=== PATIENT | female | born 1980 | race Caucasian/White ===

== ENCOUNTER → 2017-03-04 | Outpatient (CLI) | payer BC ==
--- NOTE | 2017-03-04 09:21 | MM ---
Reason for exam: screening (asymptomatic). Baseline mammogram. History: Family history of breast cancer in paternal grandmother and breast cancer in paternal aunt. Physical Findings: Nurse did not find any significant physical abnormalities on exam. MG Screening Mammo w CAD Bilateral CC and MLO view(s) were taken. The breast tissue is heterogeneously dense. This may lower the sensitivity of mammography. Finding: There is a typically benign 3.9 mm equal density (isodense), round mass in the right breast consistent with benign disease. These results were verbally communicated with the patient and result sheet given to the patient on 03/04/17. ASSESSMENT: Benign, BI-RAD 2 RECOMMENDATION: Follow-up diagnostic mammogram of both breasts in 1 year.
[2017-03-04 11:30] LABS: Hemoglobin A1C 5.5 % (4.2-6.1)
[2017-03-04 13:43] LABS: Follicle Stimulating Hormone 4.3 mIU/mL
== END | disposition home or self-care (01) ==
LOC: RADMAMWWP 07:52
PROVIDERS: ATTEND Obstetrics & Gynecology
DX: Z12.31 Encounter for screening mammogram for malignant neoplasm of breast (principal); Z13.1 Encounter for screening for diabetes mellitus; Z13.220 Encounter for screening for lipoid disorders; Z13.29 Encounter for screening for other suspected endocrine disorder; N92.6 Irregular menstruation, unspecified; Z80.3 Family history of malignant neoplasm of breast
CPT/HCPCS: 84439; 80061; 83001; 83002; 83036; 82670; 82947; 84443; G0202; 96361; 96365; 99285

== ENCOUNTER → 2017-08-22 | Outpatient (CLI) | payer BC ==
--- NOTE | 2017-08-23 07:47 | MM ---
Reason for exam: clinical finding. Last mammogram was performed 6 months ago. History: Family history of breast cancer in paternal grandmother and breast cancer in paternal aunt. Physical Findings: Nurse did not find any significant physical abnormalities on exam. MG Diagnostic Mammo w CAD MATHEUS Bilateral CC and MLO view(s) were taken. Prior study comparison: March 04, 2017, bilateral MG screening mammo w CAD. The breast tissue is heterogeneously dense. This may lower the sensitivity of mammography. No suspicious abnormality. No significant new findings when compared with previous films. These results were verbally communicated with the patient and result sheet given to the patient on 08/22/17. ASSESSMENT: Negative, BI-RAD 1 RECOMMENDATION: Routine screening mammogram of both breasts in 1 year. Manage patient on a clinical basis. If persistent discharge, MR brain could be performed, pituitary mass protocol for microadenoma.
--- NOTE | 2017-08-23 07:49 | USB ---
Reason for exam: additional evaluation requested from abnormal screening. History: Family history of breast cancer in paternal grandmother and breast cancer in paternal aunt. US Breast BILAT Right breast ultrasound includes all four quadrants, the retroareolar region and axilla. Finding demonstrates a 3mm cystic lesion at 8 o'clock. Left breast ultrasound includes all four quadrants, the retroareolar region and axilla. Finding demonstrates a 3mm cystic lesion at 6 o'clock. Benign with post acoustic enhancement. These results were verbally communicated with the patient and result sheet given to the patient on 08/22/17. ASSESSMENT: Benign, BI-RAD 2 RECOMMENDATION: Routine screening mammogram of both breasts in 1 year. Manage patient on a clinical basis.
== END | disposition home or self-care (01) ==
LOC: RADMAMWWP 14:11
PROVIDERS: ATTEND Family Medicine
DX: N64.52 Nipple discharge (principal)
CPT/HCPCS: 76641; G0204

== ENCOUNTER → 2018-01-15 | Outpatient (CLI) | payer BC ==
[2018-01-15 10:48] LABS: T4, Free (Free Thyroxine) 0.81 ng/dL (0.78-2.19)
[2018-01-15 17:19] LABS: Insulin Level 5.5 mIU/mL (3.0-25.0)
[2018-01-15 18:57] LABS: ACTH 27.5 pg/mL (0.00-45.99)
== END | disposition home or self-care (01) ==
LOC: LABWHC1 08:48
PROVIDERS: ATTEND Internal Medicine Endocrinology, Diabetes & Metabolism
DX: N97.0 Female infertility associated with anovulation (principal)
CPT/HCPCS: 36415; 82024; 82533; 82670; 82947; 83001; 83002; 83525; 84146; 84403; 84439; 84443

== ENCOUNTER → 2018-03-05 | Outpatient (CLI) | payer BC | END | disposition home or self-care (01) | LOC: LABWHC1 08:30 | PROVIDERS: ATTEND Internal Medicine Endocrinology, Diabetes & Metabolism | DX: N97.0 Female infertility associated with anovulation (principal) | CPT/HCPCS: 36415; 84144 ==

== ENCOUNTER → 2018-03-18 | Outpatient (CLI) | payer BC ==
[2018-03-19 06:27] LABS: Hemoglobin A1C 5.3 % (4.0-6.0)
== END | disposition home or self-care (01) ==
LOC: LABWHC1 16:05
PROVIDERS: ATTEND Internal Medicine Endocrinology, Diabetes & Metabolism
DX: E03.8 Other specified hypothyroidism (principal); R73.09 Other abnormal glucose
CPT/HCPCS: 36415; 83036; 86376

== ENCOUNTER 2018-09-23 15:42 | Emergency (ER) | payer BC ==
[2018-09-23 15:51] VITALS: RESP 18
[2018-09-23] MEDS ORDERED: MORPHINE SULFATE 4 MG/ML SYRINGE IV STA (16:54)
[2018-09-23] MEDS ORDERED: SODIUM CHLORIDE 0.9% 1,000 ML IV STA (16:54)
[2018-09-23] MEDS ORDERED: ONDANSETRON 4 MG/2 ML VIAL IVP STA ×2 (16:54→20:25)
[2018-09-23 17:13] LABS: Basophils # (A) 0.1 k/uL (0-0.2); Basophils % (A) 1 %; Eosinophils # (A) 0.3 k/uL (0-0.7); Eosinophils % (A) 3 %; HCT 43.7 % (34.0-46.0); HGB 14.1 gm/dL (11.4-16.0); Lymphocytes # (A) 2.3 k/uL (1.0-4.8); Lymphocytes % (A) 23 %; MCH 30.4 pg (25.0-35.0); MCHC 32.3 g/dL (31.0-37.0); Mean Platelet Volume 7.8; Monocytes # (A) 0.6 k/uL (0-1.0); Monocytes % (A) 6 %; Neutrophils # (A) 6.7 k/uL (1.3-7.7); Neutrophils % (A) 66 %; Platelet Count 335 k/uL (150-450); RBC 4.65 m/uL (3.80-5.40); RDW 13.5 % (11.5-15.5); WBC 10.2 k/uL (3.8-10.6)
[2018-09-23 17:16] LABS: Appearance,Urine Clear (Clear); Bilirubin,Urine Negative (Negative); Blood,Urine Negative (Negative); Color,Urine Yellow; Glucose,Urine (UA) Negative (Negative); Ketones,Urine Negative (Negative); Leukocyte Esterase,Urine Negative (Negative); Nitrite,Urine Negative (Negative); PH, Urine 5.5 (5.0-8.0); Protein,Urine Negative (Negative); Specific Gravity,Urine 1.007 (1.001-1.035); Urobilinogen,Urine <2.0 mg/dL (<2.0)
[2018-09-23 17:24] LABS: ALT 43 U/L (9-52); AST 30 U/L (14-36); Albumin 3.9 g/dL (3.5-5.0); Alkaline Phosphatase 101 U/L (38-126); Amylase 42 U/L (30-110); Anion Gap 8 mmol/L; Blood Urea Nitrogen 4 mg/dL (7-17); Calcium 9.4 mg/dL (8.4-10.2); Carbon Dioxide 21 mmol/L (22-30); Chloride 110 mmol/L (98-107); Glucose 94 mg/dL (74-99); Lipase 77 U/L (23-300); Potassium 4.5 mmol/L (3.5-5.1); Sodium 139 mmol/L (137-145); Total Bilirubin 0.7 mg/dL (0.2-1.3); Total Protein 6.7 g/dL (6.3-8.2)
--- NOTE | 2018-09-23 17:41 | ED ---
General Adult HPI - General Chief complaint: Abdominal Pain Stated complaint: Pelvic pain Time Seen by Provider: 09/23/18 16:46 Source: patient, RN notes reviewed Mode of arrival: ambulatory Limitations: no limitations - History of Present Illness Initial comments: Patient 38-year-old female presented to the emergency room today with a chief complaint of left lower quadrant pain that began yesterday. Patient states that she woke up yesterday with discomfort in the left lower quadrant. Patient denies any radiation. She does admit to feeling nauseated. She states never had pain similar to this in the past. She does admit that she started her menstrual cycle today. Denies any other complaints or symptoms. Patient denies any recent fever, chills, shortness of breath, chest pain, back pain, numbness or tingling, headaches or visual changes, or any other complaints. - Related Data Home Medications Medication Instructions Recorded Confirmed Ibuprofen [Motrin Ib] 800 mg PO Q6H PRN 09/23/18 09/23/18 Previous Rx's Medication Instructions Recorded Hydrocodone/Acetaminophen [[place] 1 each PO Q6HR PRN #12 tab 09/23/18 5-325] Ibuprofen [Motrin] 800 mg PO Q6HR #30 tab 09/23/18 Ondansetron Odt [Zofran ODT] 4 mg PO Q8HR PRN #20 tab 09/23/18 Allergies Allergy/AdvReac Type Severity Reaction Status Date / Time No Known Allergies Allergy Verified 09/23/18 16:33 Review of Systems ROS Statement: Those systems with pertinent positive or pertinent negative responses have been documented in the HPI. ROS Other: All systems not noted in ROS Statement are negative. Past Medical History Past Medical History: No Reported History History of Any Multi-Drug Resistant Organisms: None Reported Past Surgical History: No Surgical Hx Reported Additional Past Surgical History / Comment(s): d&c Past Psychological History: No Psychological Hx Reported Smoking Status: Current every day smoker Past Alcohol Use History: Occasional Past Drug Use History: None Reported General Exam - General Exam Comments Initial Comments: General: The patient is awake and alert, in mild distress. Eye: Pupils are equal, round and reactive to light. Extra-ocular movements are intact. No nystagmus. There is normal conjunctiva bilaterally. No signs of icterus. Ears, nose, mouth and throat: There are moist mucous membranes and no oral lesions. Neck: The neck is supple, there is no tenderness or JVD. Cardiovascular: There is a regular rate and rhythm. No murmur, rub or gallop is appreciated. Respiratory: Lungs are clear to auscultation, respirations are non-labored, breath sounds are equal. No wheezes, stridor, rales, or rhonchi. Gastrointestinal: Abdomen soft on palpation. Patient does have tenderness left lower quadrant. No rebound, guarding or CVA tenderness. Musculoskeletal: Normal ROM, no tenderness. Sensation intact. Strength 5/5. Pulses equal bilaterally 2+. Neurological: A&O x 3. CN II-XII intact, There are no obvious motor or sensory deficits. Coordination appears grossly intact. Speech is normal. Skin: Skin is warm and dry and no rashes or lesions are noted. Psychiatric: Cooperative, appropriate mood & affect, normal judgment. Limitations: no limitations Course Vital Signs 09/23/18 09/23/18 15:49 19:06 Temperature 98.0 F Pulse Rate 74 70 Respiratory 18 18 Rate Blood Pressure 120/79 101/72 O2 Sat by Pulse 100 98 Oximetry Medical Decision Making - Medical Decision Making Patient's labs been reviewed. Patient's ultrasound does show evidence of a large left ovarian cyst no evidence for torsion. Good venous Doppler flow. Results were discussed with the patient is discussed with attending physician Dr. toledo. 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 She will be given pain medication. An opiate Start talking foreign was completed. Patient is advised that she should return to emergency room if any symptoms increase or worsen. She states understanding and is in agreement. - Lab Data Result diagrams: 09/23/18 16:32 09/23/18 16:32 Lab Results 09/23/18 09/23/18 09/23/18 Range/Units 16:32 16:32 16:55 WBC 10.2 (3.8-10.6) k/uL RBC 4.65 (3.80-5.40) m/uL Hgb 14.1 (11.4-16.0) gm/dL Hct 43.7 (34.0-46.0) % MCV 94.0 (80.0-100.0) fL MCH 30.4 (25.0-35.0) pg MCHC 32.3 (31.0-37.0) g/dL RDW 13.5 (11.5-15.5) % Plt Count 335 (150-450) k/uL Neutrophils % 66 % Lymphocytes % 23 % Monocytes % 6 % Eosinophils % 3 % Basophils % 1 % Neutrophils # 6.7 (1.3-7.7) k/uL Lymphocytes # 2.3 (1.0-4.8) k/uL Monocytes # 0.6 (0-1.0) k/uL Eosinophils # 0.3 (0-0.7) k/uL Basophils # 0.1 (0-0.2) k/uL Sodium 139 (137-145) mmol/L Potassium 4.5 (3.5-5.1) mmol/L Chloride 110 H (98-107) mmol/L Carbon Dioxide 21 L (22-30) mmol/L Anion Gap 8 mmol/L BUN 4 L (7-17) mg/dL Creatinine 0.69 (0.52-1.04) mg/dL Est GFR (CKD-EPI)AfAm >90 (>60 ml/min/1.73 sqM) Est GFR (CKD-EPI)NonAf >90 (>60 ml/min/1.73 sqM) Glucose 94 (74-99) mg/dL Calcium 9.4 (8.4-10.2) mg/dL Total Bilirubin 0.7 (0.2-1.3) mg/dL AST 30 (14-36) U/L ALT 43 (9-52) U/L Alkaline Phosphatase 101 (38-126) U/L Total Protein 6.7 (6.3-8.2) g/dL Albumin 3.9 (3.5-5.0) g/dL Amylase 42 (30-110) U/L Lipase 77 (23-300) U/L Urine Color Urine Appearance (Clear) Urine pH (5.0-8.0) Ur Specific [place] (1.001-1.035) Urine Protein (Negative) Urine Glucose (UA) (Negative) Urine Ketones (Negative) Urine Blood (Negative) Urine Nitrite (Negative) Urine Bilirubin (Negative) Urine Urobilinogen (<2.0) mg/dL Ur Leukocyte Esterase (Negative) Urine HCG, Qual Not Detected (Not Detectd) 09/23/18 Range/Units 16:55 WBC (3.8-10.6) k/uL RBC (3.80-5.40) m/uL Hgb (11.4-16.0) gm/dL Hct (34.0-46.0) % MCV (80.0-100.0) fL MCH (25.0-35.0) pg MCHC (31.0-37.0) g/dL RDW (11.5-15.5) % Plt Count (150-450) k/uL Neutrophils % % Lymphocytes % % Monocytes % % Eosinophils % % Basophils % % Neutrophils # (1.3-7.7) k/uL Lymphocytes # (1.0-4.8) k/uL Monocytes # (0-1.0) k/uL Eosinophils # (0-0.7) k/uL Basophils # (0-0.2) k/uL Sodium (137-145) mmol/L Potassium (3.5-5.1) mmol/L Chloride (98-107) mmol/L Carbon Dioxide (22-30) mmol/L Anion Gap mmol/L BUN (7-17) mg/dL Creatinine (0.52-1.04) mg/dL Est GFR (CKD-EPI)AfAm (>60 ml/min/1.73 sqM) Est GFR (CKD-EPI)NonAf (>60 ml/min/1.73 sqM) Glucose (74-99) mg/dL Calcium (8.4-10.2) mg/dL Total Bilirubin (0.2-1.3) mg/dL AST (14-36) U/L ALT (9-52) U/L Alkaline Phosphatase (38-126) U/L Total Protein (6.3-8.2) g/dL Albumin (3.5-5.0) g/dL Amylase (30-110) U/L Lipase (23-300) U/L Urine Color Yellow Urine Appearance Clear (Clear) Urine pH 5.5 (5.0-8.0) Ur Specific [place] 1.007 (1.001-1.035) Urine Protein Negative (Negative) Urine Glucose (UA) Negative (Negative) Urine Ketones Negative (Negative) Urine Blood Negative (Negative) Urine Nitrite Negative (Negative) Urine Bilirubin Negative (Negative) Urine Urobilinogen <2.0 (<2.0) mg/dL Ur Leukocyte Esterase Negative (Negative) Urine HCG, Qual (Not Detectd) Disposition Clinical Impression: Ovarian cyst Disposition: HOME SELF-CARE Condition: Good Instructions: Ovarian Cyst (ED) Additional Instructions: Please use medication as discussed. Please follow-up with family doctor in the next 2 days of symptoms have not improved. Please return to emergency room if the symptoms increase or worsen or for any other concerns. Prescriptions: Hydrocodone/Acetaminophen [[place] 5-325] 1 each PO Q6HR PRN #12 tab PRN Reason: Pain Ibuprofen [Motrin] 800 mg PO Q6HR #30 tab Ondansetron Odt [Zofran ODT] 4 mg PO Q8HR PRN #20 tab PRN Reason: Nausea Is patient prescribed a controlled substance at d/c from ED?: No Referrals: None,Stated [Primary Care Provider] - 1-2 days Jhoana Lang DO [Doctor of Osteopathic Medicine] - 1-2 days Time of Disposition: 20:27
[2018-09-23] MEDS ORDERED: HYDROmorphone 1 MG/ML 1 ML SYRINGE IVP STA ×2 (17:43→20:25)
--- NOTE | 2018-09-23 19:24 | US ---
EXAMINATION TYPE: US transvaginal DATE OF EXAM: 09/23/2018 COMPARISON: NONE CLINICAL HISTORY: pain. Severe LLQ pain x 2 days; G0; D&C TECHNIQUE: Transvaginal (TV). per EC ordering physician. Transvaginal sonographic images were medic ally necessary to better assess the following anatomy: left ovary. Date of LMP: 09/23/2018 EXAM MEASUREMENTS: Uterus: 7.6 x 4.6 x 3.9 cm Endometrial Stripe: 0.5 cm Right Ovary: 4.6 x 3.9 x 2.9 cm Left Ovary: 5.1 x 5.1 x 4.8 cm 1. Uterus: Anteverted; couple of small Nabothian Cysts in cervix 2. Endometrium: thickness is wnl for Day 1 LMP 3. Right Ovary: enlarged ovary; couple of follicular cysts seen with larger simple cyst = 3.0 x 2.7 x 2.4cm 4. Left Ovary: enlarged ovary; enlarged anechoic simple cyst present, demonstrating posterior wall e nhancement and acoustic through sound transmission. This correlates with the patient's area of pain; cyst size = 4.3 x 5.1 x 4.9cm. Spectral, color and waveform Doppler imaging shows good arterial and venous flow within the right o vary. Flow is also seen on the left, in periphery of left ovary on on images #[id number], [id number] with venous flow,[id number], [id number], and arterial flow in periphery on image #[id number]. 5. Bilateral Adnexa: wnl 6. Posterior cul-de-sac: wnl IMPRESSION: LARGE LEFT OVARIAN CYST; LEFT OVARIAN ARTERIAL/VENOUS DOPPLER PERFUSION DOCUMENTED.
[2018-09-23] MEDS ORDERED: KETOROLAC 30 MG/ML 1 ML VIAL IVP STA (20:25)
[2018-09-23 20:46] VITALS: BP 123/78; PULSE 65; TEMP 98.6
== END 2018-09-23 20:52 | disposition home or self-care (01) ==
LOC: EC 15:42
DX: N83.202 Unspecified ovarian cyst, left side (principal); F17.200 Nicotine dependence, unspecified, uncomplicated
CPT/HCPCS: 36415; 80053; 82150; 83690; 85025; 81003; 81025; 93975; 76830; 99284; 96374; 96375 ×3; 96376 ×2; 96361 ×4; J2270; J2405; J1885; J1170

== ENCOUNTER → 2018-11-10 | Outpatient (CLI) | payer BC ==
[2018-11-10 12:53] LABS: Basophils # (A) 0.1 k/uL (0-0.2); Basophils % (A) 1 %; Eosinophils # (A) 0.3 k/uL (0-0.7); Eosinophils % (A) 4 %; HGB 13.9 gm/dL (11.4-16.0); Lymphocytes % (A) 26 %; MCHC 32.3 g/dL (31.0-37.0); MCV 92.8 fL (80.0-100.0); Mean Platelet Volume 7.1; Monocytes # (A) 0.5 k/uL (0-1.0); Monocytes % (A) 7 %; Neutrophils # (A) 4.7 k/uL (1.3-7.7); Neutrophils % (A) 60 %; Platelet Count 356 k/uL (150-450); RBC 4.64 m/uL (3.80-5.40); RDW 14.2 % (11.5-15.5); WBC 7.8 k/uL (3.8-10.6)
== END | disposition home or self-care (01) ==
LOC: LABPAT 12:00
PROVIDERS: ATTEND Obstetrics & Gynecology
DX: Z01.812 Encounter for preprocedural laboratory examination (principal)
CPT/HCPCS: 85025

== ENCOUNTER → 2018-12-09 | Day surgery (SDC) | payer BC ==
[2018-11-28 14:35] VITALS: BMI 28.8
--- NOTE | 2018-12-08 20:56 | P.HPOB ---
History of Present Illness H&P Date: 12/08/18 Chief Complaint: Dysmenorrhea, history of ovarian cysts, infertility This is a 38-year-old female 0 who presents for laparoscopy, possible ablation of endometriosis, possible lysis of adhesions, possible drainage of ovarian cyst, and chromotubation of bilateral fallopian tubes She did have a large left ovarian cyst approximate 5 cm a few months ago and her recent ultrasound showed that cyst has gone down but she now has a small cyst on her right ovary measuring 2.8 cm. She complains of severe dysmenorrhea the first couple days of her menses. She has been trying to get for the last 6 years and has not used any protection during that time. Her does have an 8-year-old child from a previous relationship. During the laparoscopy she would like testing to determine if her tubes are patent. Her latest pelvic ultrasound showed a uterus measuring 6.3 x 4.2 x 3.1 cm. Endometrial stripe thickness was 8 mm. Her right ovary measured 3.2 cm and contained a small simple cyst measuring 2.8 cm. Her left ovary appeared normal measuring 2.8 cm. Obstetrical history: G0. Gynecologic history: No history of sexual transmitted diseases. Menses are occurring every 30-32 days and last 5-7 days with cramping the first couple days. Social history: She is and works at [employer] Review of Systems Constitutional: Reports fatigue, Denies chills, Denies fever Eyes: denies blurred vision, denies pain Ears, nose, mouth and throat: Reports headache, Denies sore throat Cardiovascular: Reports chest pain, Denies shortness of breath Respiratory: Denies cough Gastrointestinal: Denies abdominal pain, Denies diarrhea, Denies nausea, Denies vomiting Genitourinary: Reports dysmenorrhea Menstruation: Reports menses 1-7 days Musculoskeletal: Reports low back pain, Reports myalgias Musculoskeletal: bilateral: knee pain Integumentary: Denies pruritus, Denies rash Neurological: Denies numbness, Denies weakness Psychiatric: Denies anxiety, Denies depression Endocrine: Reports flushing Past Medical History Past Medical History: Chest Pain / Angina, GERD/Reflux Additional Past Medical History / Comment(s): currently having abdominal pain with menses with sporadic intervals of pain, bronchitis; Raynaud's History of Any Multi-Drug Resistant Organisms: None Reported Additional Past Surgical History / Comment(s): d&c x 3 Past Anesthesia/Blood Transfusion Reactions: No Reported Reaction Additional Past Anesthesia/Blood Transfusion Reaction / Comment(s): no hx blood transfusion Past Psychological History: No Psychological Hx Reported Smoking Status: Current every day smoker (One pack per day) Past Alcohol Use History: Occasional Past Drug Use History: None Reported - Past Family History Mother Family Medical History: No Reported History Father Family Medical History: Myocardial Infarction ([place]) Medications and Allergies Home Medications Medication Instructions Recorded Confirmed Type Ibuprofen [Motrin] 400 - 800 mg PO Q6HR PRN 11/28/18 11/28/18 History Pnv No.95/Ferrous Fum/Folic AC 1 each PO DAILY 11/28/18 11/28/18 History [ Multivitamin Tablet] Allergies Allergy/AdvReac Type Severity Reaction Status Date / Time No Known Allergies Allergy Verified 11/28/18 14:27 Exam Osteopathic Statement: *. No significant issues noted on an osteopathic structural exam other than those noted in the History and Physical/Consult. HEENT: Within normal limits Heart: Regular rate and rhythm Lungs: Clear to auscultation bilaterally Abdomen: Soft, nontender Pelvic exam: Uterus is anteverted, nontender, with slightly enlarged left adnexa and tenderness noted. Extremities: Negative Homans Assessment and Plan (1) Dysmenorrhea Status: Acute Code(s): N94.6 - DYSMENORRHEA, UNSPECIFIED SNOMED Code(s): 937703897 (2) Ovarian cyst Status: Acute Code(s): N83.209 - UNSPECIFIED OVARIAN CYST, UNSPECIFIED SIDE SNOMED Code(s): 89168491 (3) Infertility Status: Acute Code(s): BVW2399 - SNOMED Code(s): 4372382 Plan: Proceed with laparoscopy with possible ablation of endometriosis, possible lysis of adhesions, possible drainage of ovarian cysts, and chromotubation of bilateral fallopian tubes. I have discussed the risks, benefits, and alternative therapies for the above- mentioned procedure and for both sedation/anesthesia as well as necessary blood products administration, if indicated, as they pertain to this patient. The patient has indicated her understanding and acceptance of the risks and procedures discussed.
[~2018-12-09] MED LIST: BUPIVACAINE (PF) 0.25% 30 ML VIAL SQ ONE; DEXAMETHASONE SOD PHOSPHATE 10 MG/ML 1 ML VIAL IV ONE; GLYCOPYRROLATE 0.2 MG/ML 2 ML VIAL ONE; HYDROcodone/APAP 5-325MG 1 EACH TAB PO ONE; HYDROmorphone (PF) 1 MG/ML ONE; KETOROLAC 30 MG/ML 1 ML VIAL ONE; LACTATED RINGERS 1,000 ML IV ONE; LACTATED RINGERS 1,000 ML IV SCH; LIDOCAINE 1% INJ 10MG/ML (20 ML MDV) ONE; MIDAZOLAM 2 MG/2 ML VIAL ONE; MORPHINE SULFATE 4 MG/ML SYRINGE IV PRN; NEOSTIGMINE 1 MG/ML 10 ML VIAL ONE; ONDANSETRON 4 MG/2 ML VIAL IVP ONE; ONDANSETRON 4 MG/2 ML VIAL IVP PRN; PROPOFOL 10 MG/ML 20 ML VIAL IV ONE; ROCURONIUM BROMIDE 10 MG/ML 10 ML VIAL IV ONE; ceFAZolin IN SWFI 2 GM/20 ML SYRINGE IVP ONE; fentaNYL (PF) 50 MCG/ML 2 ML AMP ONE
[2018-12-09 09:29] VITALS: RESP 16
--- NOTE | 2018-12-09 11:41 | P.OP ---
Date of Procedure: 12/09/18 Preoperative Diagnosis: Dysmenorrhea History of ovarian cysts Infertility Postoperative Diagnosis: Same plus Normal pelvis Patent bilateral fallopian tubes Procedure(s) Performed: Laparoscopy Chromotubation Anesthesia: TRINITY Surgeon: Jhoana Lang Estimated Blood Loss (ml): 5 Pathology: none sent Condition: stable Disposition: same day Indications for Procedure: This is a 38-year-old female 0 who presents for laparoscopy, possible ablation of endometriosis, possible lysis of adhesions, possible drainage of ovarian cyst, and chromotubation of bilateral fallopian tubes She did have a large left ovarian cyst approximate 5 cm a few months ago and her recent ultrasound showed that cyst has gone down but she now has a small cyst on her right ovary measuring 2.8 cm. She complains of severe dysmenorrhea the first couple days of her menses. She has been trying to get for the last 6 years and has not used any protection during that time. Her does have an 8-year-old child from a previous relationship. During the laparoscopy she would like testing to determine if her tubes are patent. Her latest pelvic ultrasound showed a uterus measuring 6.3 x 4.2 x 3.1 cm. Endometrial stripe thickness was 8 mm. Her right ovary measured 3.2 cm and contained a small simple cyst measuring 2.8 cm. Her left ovary appeared normal measuring 2.8 cm. Operative Findings: Uterus is mid to retroverted with no adnexal masses palpated. Upon laparoscopy , both tubes and ovaries are visualized. There is a small functional cyst on the left ovary. The right ovary appears normal. There was some paratubal cysts noted on the left fallopian tube. No evidence of endometriosis was noted. No adhesions were visualized. Upon chromotubation, both fallopian tubes appeared patent. Description of Procedure: The patient was taken to the operating room where she is placed in the dorsal lithotomy position. She is prepped and draped in the normal sterile fashion. Her bladder is drained with a catheter and then removed. Examination is performed under anesthesia. Uterus is found to be mid to retroverted position with no adnexal masses palpated. Next a bivalve speculum was placed in the patient's vagina. A single-tooth tenaculum was used to grasp the anterior lip of the cervix. The uterus is sounded to 9 cm. Cervix is gently dilated with dilators until a kroner uterine manipulator Camby inserted. Once this is inserted, the balloon is inflated. The single-tooth tenaculum is removed and no active bleeding is noted. The speculum is removed and gloves are changed. Attention is turned to the abdomen. The inferior umbilical fold was grasped in transverse fashion with 2 Allis clamps. Next a small transverse incision is made with a scalpel. A hemostat is used to carry the incision down to the underlying layer of fascia. A towel clip was placed above the umbilicus for retraction. Next a 11 mm disposable bladeless trochars and then inserted into the peritoneal cavity under direct visualization. Once inside pneumoperitoneum is achieved with CO2 gas. A small stab incision is made suprapubically and a 5 mm disposable bladeless trocar is inserted. A probe was inserted and pelvic contents are inspected. The above noted findings are made and pictures are taken. Upon attempting to push the methylene blue solution through the kroner uterine manipulator, there was noted to be resistance and it did not appear that any blue dye was going into the endometrial cavity. One vial of methylene blue was mixed with approximate 200 mL of normal saline to dilute the methylene blue. At this point the kroner uterine manipulator is removed and an acorn uterine manipulator is reinserted after replacing the single-tooth tenaculum. The tubing is then attached to the acorn manipulator. Gloves are again changed and attention is turned to the abdomen again. Next the research lab assistant injected the methylene blue solution while visualizing the tubes. Immediate spillage of methylene blue solution was noted on both fallopian tubes. Both tubes appeared patent. Picture is taken. Next the procedure is concluded. The inferior trocar is removed under direct visualization. No active bleeding is noted. The pneumoperitoneum is released. The upper trocar is removed. The fascial incision on the upper trocar site is closed with 0 Vicryl suture in interrupted [id number] fashion. The skin incisions are then closed with 4-0 undyed Vicryl suture in a subcuticular fashion. Incision sites are then injected with quarter percent Marcaine. Approximately 7 mL are used. Next the acorn uterine manipulator and single-tooth tenaculum are removed vaginally. No active bleeding is noted. All sponge and needle counts are correct. The patient is then taken to recovery room.
[2018-12-09] MEDS: HYDROmorphone 0.5 MG/0.5 ML SYRINGE IVP PRN ×3 (11:52→12:17)
[2018-12-09] MEDS: MEPERIDINE 50 MG/ML SYRINGE IVP ONE ×2 (11:52→12:25)
[2018-12-09 11:54] VITALS: TEMP 98
[2018-12-09 13:27] VITALS: PULSE 62
[2018-12-09 13:51] VITALS: BP 106/67
== END | disposition home or self-care (01) ==
LOC: OR 08:37
PROVIDERS: ATTEND Obstetrics & Gynecology
DX: N97.9 Female infertility, unspecified (principal); N94.6 Dysmenorrhea, unspecified; N83.291 Other ovarian cyst, right side; K21.9 Gastro-esophageal reflux disease without esophagitis; I73.00 Raynaud's syndrome without gangrene; F17.210 Nicotine dependence, cigarettes, uncomplicated
CPT/HCPCS: 81025; 58350; J2250; J1100; J2710; J2175; J2405; J2001; J3010; J1885; J1170 ×2; J2704

== ENCOUNTER → 2019-01-06 | Outpatient (CLI) | payer OTHER ==
--- NOTE | 2019-01-06 09:25 | MR ---
EXAMINATION TYPE: MR ankle LT wo con DATE OF EXAM: 01/06/2019 COMPARISON: None HISTORY: Sprain of ligament of left ankle Multiplanar, multisequence images of the left ankle were acquired per department protocol. FINDINGS: There is a high-grade partial-thickness tear of the anterior talofibular ligament with few diminutive fibers remaining and small associated left ankle joint effusion. This is simple appearing without in ternal complexity. There is a partial thickness tear of the posterior talofibular ligament with abnor mal signal throughout the fibers. The deltoid ligament is intact and unremarkable the spring ligament is intact and unremarkable. There is a focal short segment split tear of the peroneus brevis at the ankle joint demonstrated as t he chevron sign on axial T2 fat sat image 21-25. The peroneus longus is unremarkable. Extensor tendons are unremarkable. Minimal fluid is seen surrounding the tendon sheaths of the tibialis posterior and flexor hallucis lo ngus above and at the ankle joint. Very small amount of fluid is seen anterior to the Achilles tendon. Achilles tendon appears intact an d of unremarkable signal. Plantar fascia is intact and unremarkable. Sinus tarsus is unremarkable in signal. Bone marrow signal throughout the left ankle is within normal limits. Congruency of the left ankle wilfrid int is maintained. No osteochondral defect is seen nor significant bone marrow edema. IMPRESSION: 1. High-grade partial-thickness tear of the anterior talofibular ligament and partial-thickness tear of the posterior talofibular ligament. 2. Focal short segment split tear peroneus brevis at the ankle joint. 3. Small uncomplicated tibiotalar joint effusion. 4. Minimal signal surrounding the tendon sheath of the tibialis posterior and flexor hallucis longus at number of the ankle joint suggesting mild tenosynovitis.
== END ==
LOC: RADMRIMAIN 06:36
PROVIDERS: ATTEND Emergency Medicine
DX: S93.492A Sprain of other ligament of left ankle, initial encounter (principal); S96.812A Strain of other specified muscles and tendons at ankle and foot level, left foot, initial encounter

== ENCOUNTER 2019-06-15 19:19 | Emergency (ER) | payer BC, OTHER ==
[2019-06-15 19:28] VITALS: BP 141/83; PULSE 89; RESP 17; TEMP 98.5
--- NOTE | 2019-06-15 20:09 | XR ---
EXAMINATION TYPE: XR ankle complete RT DATE OF EXAM: 06/15/2019 COMPARISON: NONE HISTORY: Ankle pain TECHNIQUE: 3 views FINDINGS: Ankle mortise is anatomic. I see no fracture nor dislocation. Joint spaces are normal. IMPRESSION: Negative right ankle exam. No fracture.
--- NOTE | 2019-06-15 20:43 | ED ---
General Adult HPI - General Chief complaint: Extremity Injury, Lower Stated complaint: Ankle Injury Time Seen by Provider: 06/15/19 19:31 Source: patient Limitations: physical limitation - History of Present Illness Initial comments: Patient is a 39-year-old female presenting to emergency Department with right ankle pain. Patient reports rolling her right ankle from one step as she was walking down her basement. Patient reports incident occurred approximately one week ago. Patient reports decrease in localized edema but the pain has remained the same. Patient reports pain with inversion and dorsiflexion and plantarflexion. Patient reports limited range of motion due to pain. Patient reports keeping the leg elevated alleviates the pain. Patient reports taking [id number] medication with minimal improvement. Patient denies erythema or skin discoloration. - Related Data Home Medications Medication Instructions Recorded Confirmed Ibuprofen [Motrin Ib] 400 mg PO Q6H PRN 06/15/19 06/15/19 Isibloom 1 tab PO DAILY 06/15/19 06/15/19 Levothyroxine Sodium [Synthroid] 25 mcg PO DAILY 06/15/19 06/15/19 Allergies Allergy/AdvReac Type Severity Reaction Status Date / Time No Known Allergies Allergy Verified 06/15/19 19:43 Review of Systems ROS Statement: Those systems with pertinent positive or pertinent negative responses have been documented in the HPI. ROS Other: All systems not noted in ROS Statement are negative. Past Medical History Past Medical History: Chest Pain / Angina, GERD/Reflux Additional Past Medical History / Comment(s): currently having abdominal pain with menses with sporadic intervals of pain, bronchitis; Raynaud's History of Any Multi-Drug Resistant Organisms: None Reported Additional Past Surgical History / Comment(s): explore lap 2019 Past Anesthesia/Blood Transfusion Reactions: No Reported Reaction Additional Past Anesthesia/Blood Transfusion Reaction / Comment(s): no hx blood transfusion Past Psychological History: No Psychological Hx Reported Smoking Status: Current every day smoker Past Alcohol Use History: Occasional Past Drug Use History: None Reported - Past Family History Mother Family Medical History: No Reported History Father Family Medical History: Myocardial Infarction ([place]) General Exam Limitations: physical limitation General appearance: alert, in no apparent distress Head exam: Present: atraumatic, normocephalic, normal inspection Eye exam: Present: normal appearance, PERRL, EOMI Pupils: Present: normal accommodation ENT exam: Present: normal exam Neck exam: Present: normal inspection Respiratory exam: Present: normal lung sounds bilaterally Cardiovascular Exam: Present: regular rate, normal rhythm, normal heart sounds Extremities exam: Present: normal inspection, tenderness (Pain along the lateral malleoli. No midfoot tenderness), normal capillary refill, other (+2 dorsalis pedis and posterior tibialis. Negative anterior drawer test.). Absent: full ROM (Limited range of motion due to pain), calf tenderness Back exam: Present: normal inspection, full ROM Neurological exam: Present: alert, oriented X3 Psychiatric exam: Present: normal affect, normal mood Skin exam: Present: warm, intact, normal color Course Vital Signs 06/15/19 19:23 Temperature 98.5 F Pulse Rate 89 Respiratory 17 Rate Blood Pressure 141/83 O2 Sat by Pulse 98 Oximetry Procedures - Orthopedic Splinting/Casting Injury #1 Side: right Lower Extremity Injury Location: ankle Lower Extremity Immobilizer: Jamal wrap Medical Decision Making - Medical Decision Making Patient is a 39-year-old female presents emergency Department with right ankle pain. X-ray of the right ankle is negative for acute fractures or dislocation. Based on history and physical examination a suspect the patient to have suffered an ankle sprain. Patient advised to follow-up with orthopedics. Patient advised to keep leg elevated and apply cold compress to minimize swelling. Strict return parameters were thoroughly discussed the patient was understanding and agreeable. Case discussed with physician. Disposition Clinical Impression: Ankle sprain Disposition: HOME SELF-CARE Condition: Stable Instructions (If sedation given, give patient instructions): Ankle Sprain (ED) Additional Instructions: Alternate between Tylenol and ibuprofen for pain control. Keep leg elevated and apply cold compress. Please follow with orthopedics. Please return to emergency department if symptoms worsen. Is patient prescribed a controlled substance at d/c from ED?: No Referrals: None,Stated [Primary Care Provider] - 1-2 days Edgar Savage MD [Medical Doctor] - 1-2 days Time of Disposition: 20:42
== END 2019-06-15 20:51 | disposition home or self-care (01) ==
LOC: EC 19:19
DX: S93.401A Sprain of unspecified ligament of right ankle, initial encounter (principal); F17.200 Nicotine dependence, unspecified, uncomplicated; Z79.3 Long term (current) use of hormonal contraceptives; Z79.890 Hormone replacement therapy; W10.9XXA Fall (on) (from) unspecified stairs and steps, initial encounter; Y93.01 Activity, walking, marching and hiking
CPT/HCPCS: 99283

== ENCOUNTER 2020-05-07 16:46 | Emergency (ER) | payer BC ==
[2020-05-07 16:53] VITALS: TEMP 98.3
[2020-05-07] MEDS ORDERED: SODIUM CHLORIDE 0.9% 1,000 ML IV ONE (17:00)
--- NOTE | 2020-05-07 17:24 | ED ---
Female Urogenital HPI - General Chief complaint: Vaginal Bleeding Stated complaint: abd pain/cramps/ Time Seen by Provider: 05/07/20 16:59 Source: patient, RN notes reviewed, old records reviewed Mode of arrival: ambulatory Limitations: no limitations - History of Present Illness Initial comments: This is a 32-year-old female DF for evaluation patient presents for evaluation of vaginal bleeding bleeding of . Patient states she recently had to use dipstick test positive for chest or from difficult pregnancies with multiple prior miscarriages no IUP or no to completion. Patient was seen by primary care who did blood test earlier this week she does not know the results. Patient is cramping and bleeding starting today MD Complaint: vaginal bleeding, pelvic pain -: days(s) Location: perineum Radiation: suprapubic Severity: mild Severity scale (1-10): 3 Quality: cramping Consistency: constant Improves with: menstrual period Patient : Yes (Patient believes self) Associated Symptoms: denies other symptoms - Related Data Home Medications Medication Instructions Recorded Confirmed Ibuprofen [Motrin Ib] 400 mg PO Q6H PRN 06/15/19 06/15/19 Isibloom 1 tab PO DAILY 06/15/19 06/15/19 Levothyroxine Sodium [Synthroid] 25 mcg PO DAILY 06/15/19 06/15/19 Allergies Allergy/AdvReac Type Severity Reaction Status Date / Time No Known Allergies Allergy Verified 05/07/20 16:53 Review of Systems ROS Statement: Those systems with pertinent positive or pertinent negative responses have been documented in the HPI. ROS Other: All systems not noted in ROS Statement are negative. Past Medical History Past Medical History: GERD/Reflux Additional Past Medical History / Comment(s): bronchitis; Raynaud's History of Any Multi-Drug Resistant Organisms: None Reported Additional Past Surgical History / Comment(s): explore lap 2019, D&C Past Anesthesia/Blood Transfusion Reactions: No Reported Reaction Additional Past Anesthesia/Blood Transfusion Reaction / Comment(s): no hx blood transfusion Past Psychological History: No Psychological Hx Reported Smoking Status: Current every day smoker Past Alcohol Use History: Occasional Past Drug Use History: None Reported - Past Family History Mother Family Medical History: No Reported History Father Family Medical History: Myocardial Infarction ([place]) General Exam Limitations: no limitations General appearance: alert, in no apparent distress Head exam: Present: atraumatic, normocephalic, normal inspection Eye exam: Present: normal appearance, PERRL, EOMI. Absent: scleral icterus, conjunctival injection, periorbital swelling ENT exam: Present: normal exam, mucous membranes moist Neck exam: Present: normal inspection. Absent: tenderness, meningismus, lymphadenopathy Respiratory exam: Present: normal lung sounds bilaterally. Absent: respiratory distress, wheezes, rales, rhonchi, stridor Cardiovascular Exam: Present: regular rate, normal rhythm, normal heart sounds. Absent: systolic murmur, diastolic murmur, rubs, gallop, clicks GI/Abdominal exam: Present: soft, normal bowel sounds. Absent: distended, tenderness, guarding, rebound, rigid Extremities exam: Present: normal inspection, full ROM, normal capillary refill. Absent: tenderness, pedal edema, joint swelling, calf tenderness Back exam: Present: normal inspection Neurological exam: Present: alert, oriented X3, CN II-XII intact Psychiatric exam: Present: normal affect, normal mood Skin exam: Present: warm, dry, intact, normal color. Absent: rash Course Vital Signs 05/07/20 16:48 Temperature 98.3 F Pulse Rate 79 Respiratory 18 Rate Blood Pressure 131/87 O2 Sat by Pulse 100 Oximetry - Reevaluation(s) Reevaluation #1: 05/07/20 18:44 Medical record is reviewed Reevaluation #2: 05/07/20 18:44 Patient informed of results very aware of the difficulties of miscarriages she has multiple prior otitis pregnancies prior IVF, questions answered Medical Decision Making - Medical Decision Making 40 female DF for evaluation of possible miscarriage. Patient has no beta found on blood here in the ER possible inflammation urine will give antibiotics. Patient can be discharged home - Lab Data Result diagrams: 05/07/20 17:20 Lab Results 05/07/20 05/07/20 05/07/20 Range/Units 17:20 17:20 17:20 WBC 12.5 H (3.8-10.6) k/uL RBC 5.01 (3.80-5.40) m/uL Hgb 15.5 (11.4-16.0) gm/dL Hct 47.5 H (34.0-46.0) % MCV 94.9 (80.0-100.0) fL MCH 30.9 (25.0-35.0) pg MCHC 32.5 (31.0-37.0) g/dL RDW 13.2 (11.5-15.5) % Plt Count 344 (150-450) k/uL Neutrophils % 73 % Lymphocytes % 17 % Monocytes % 5 % Eosinophils % 3 % Basophils % 1 % Neutrophils # 9.1 H (1.3-7.7) k/uL Lymphocytes # 2.1 (1.0-4.8) k/uL Monocytes # 0.6 (0-1.0) k/uL Eosinophils # 0.4 (0-0.7) k/uL Basophils # 0.1 (0-0.2) k/uL HCG, Quant mIU/mL Urine Color Red Urine Appearance Cloudy H (Clear) Urine pH 6.0 (5.0-8.0) Ur Specific [place] 1.012 (1.001-1.035) Urine Protein 2+ H (Negative) Urine Glucose (UA) Negative (Negative) Urine Ketones Negative (Negative) Urine Blood Large H (Negative) Urine Nitrite Negative (Negative) Urine Bilirubin Negative (Negative) Urine Urobilinogen <2.0 (<2.0) mg/dL Ur Leukocyte Esterase Large H (Negative) Urine RBC 52 H (0-5) /hpf Urine WBC 103 H (0-5) /hpf Ur Squamous Epith Cells 18 H (0-4) /hpf Urine Bacteria Rare H (None) /hpf Urine Mucus Rare H (None) /hpf Urine HCG, Qual Not Detected (Not Detectd) Blood Type Blood Type Recheck Bld Type Recheck Status 05/07/20 05/07/20 Range/Units 17:20 17:20 WBC (3.8-10.6) k/uL RBC (3.80-5.40) m/uL Hgb (11.4-16.0) gm/dL Hct (34.0-46.0) % MCV (80.0-100.0) fL MCH (25.0-35.0) pg MCHC (31.0-37.0) g/dL RDW (11.5-15.5) % Plt Count (150-450) k/uL Neutrophils % % Lymphocytes % % Monocytes % % Eosinophils % % Basophils % % Neutrophils # (1.3-7.7) k/uL Lymphocytes # (1.0-4.8) k/uL Monocytes # (0-1.0) k/uL Eosinophils # (0-0.7) k/uL Basophils # (0-0.2) k/uL HCG, Quant 10.0 mIU/mL Urine Color Urine Appearance (Clear) Urine pH (5.0-8.0) Ur Specific [place] (1.001-1.035) Urine Protein (Negative) Urine Glucose (UA) (Negative) Urine Ketones (Negative) Urine Blood (Negative) Urine Nitrite (Negative) Urine Bilirubin (Negative) Urine Urobilinogen (<2.0) mg/dL Ur Leukocyte Esterase (Negative) Urine RBC (0-5) /hpf Urine WBC (0-5) /hpf Ur Squamous Epith Cells (0-4) /hpf Urine Bacteria (None) /hpf Urine Mucus (None) /hpf Urine HCG, Qual (Not Detectd) Blood Type O Positive Blood Type Recheck No Previous Record Bld Type Recheck Status ABR ONLY - Radiology Data Radiology results: report reviewed (Ultrasound shows no IUP), image reviewed Disposition Clinical Impression: Dysfunctional uterine bleeding, UTI (urinary tract infection) Disposition: HOME SELF-CARE Condition: Fair Instructions (If sedation given, give patient instructions): Dysmenorrhea (ED), Urinary Tract Infection in Women (ED) Is patient prescribed a controlled substance at d/c from ED?: No Referrals: Blas Crabtree MD [Primary Care Provider] - 1-2 days Jhoana Lang DO [Doctor of Osteopathic Medicine] - 1-2 days
[2020-05-07 17:33] LABS: Basophils # (A) 0.1 k/uL (0-0.2); Basophils % (A) 1 %; Eosinophils # (A) 0.4 k/uL (0-0.7); Eosinophils % (A) 3 %; HCT 47.5 % (34.0-46.0); HGB 15.5 gm/dL (11.4-16.0); Lymphocytes # (A) 2.1 k/uL (1.0-4.8); Lymphocytes % (A) 17 %; MCH 30.9 pg (25.0-35.0); MCHC 32.5 g/dL (31.0-37.0); MCV 94.9 fL (80.0-100.0); Mean Platelet Volume 7.1; Monocytes # (A) 0.6 k/uL (0-1.0); Monocytes % (A) 5 %; Neutrophils # (A) 9.1 k/uL (1.3-7.7); Neutrophils % (A) 73 %; Platelet Count 344 k/uL (150-450); RBC 5.01 m/uL (3.80-5.40); RDW 13.2 % (11.5-15.5); WBC 12.5 k/uL (3.8-10.6)
[2020-05-07 17:43] LABS: Appearance,Urine Cloudy (Clear); Bacteria,Urine Rare /hpf; Bilirubin,Urine Negative (Negative); Blood,Urine Large (Negative); Color,Urine Red; Glucose,Urine (UA) Negative (Negative); Ketones,Urine Negative (Negative); Leukocyte Esterase,Urine Large (Negative); Mucus,Urine Rare /hpf; Nitrite,Urine Negative (Negative); Protein,Urine 2+ (Negative); RBC,Urine 52 /hpf (0-5); Specific Gravity,Urine 1.012 (1.001-1.035); Squamous Epithelial Cell,Urine 18 /hpf (0-4); Urobilinogen,Urine <2.0 mg/dL (<2.0); WBC,Urine 103 /hpf (0-5)
--- NOTE | 2020-05-07 18:08 | US ---
EXAMINATION TYPE: Transabdominal DATE OF EXAM: 05/07/2020 5:56 PM COMPARISON: NONE CLINICAL HISTORY: pain. bleeding and cramping. EXAM PERFORMED: Transvaginal (TV) and Transabdominal (TA) EXAM MEASUREMENTS: GESTATIONAL AGE / DATING Physician Established: Not yet established Dates by LMP: 03/29/2020 (5 weeks/4 days) EDC: 01/03/2021 Dates by First Scan: No previous this is first scan Dates by Current Scan for: Unable to date by today's study MATERNAL ANATOMY Uterus: 6.8 x 4.3 x 5.4 cm Right Ovary: 2.7 x 1.6 x 2.9 cm, paraovarian cyst measures 1.6 x 1.5 x 1.4 cm. Left Ovary: 3.3 x 1.6 x 3.4 cm Post CDS / Adnexa: wnl Presence of free fluid: none GESTATION / SURVEY No evidence for IUP at this time. The endometrium is not thickened and decidual reaction is not seen. Date of LMP: 03/29/2020 Beta HcG (if available): Not detected Not available until after scan. IMPRESSION: Empty uterus. No evidence of ectopic . No free fluid.
[2020-05-07] MEDS ORDERED: cefTRIAXone IN SWFI 1,000 MG/10 ML SYRINGE IVP STA (18:43)
[2020-05-07 19:02] VITALS: BP 127/81; PULSE 78; RESP 8
== END 2020-05-07 19:15 | disposition home or self-care (01) ==
LOC: EC 16:46
DX: N93.8 Other specified abnormal uterine and vaginal bleeding (principal); N39.0 Urinary tract infection, site not specified; F17.200 Nicotine dependence, unspecified, uncomplicated
CPT/HCPCS: 36415; 86900; 86901; 85025; 81001; 81025; 84702; 87086; 76801; 76817; 99284; 96374; 96361; J0696

== ENCOUNTER 2020-07-14 20:50 | Emergency (ER) | payer BC ==
[2020-07-14 21:11] VITALS: BP 123/90; PULSE 81; RESP 16; TEMP 98.6
[2020-07-14] MEDS ORDERED: ACET/COD 300 MG/30 MG STARTER PACK 6 TAB BTL PO STA (21:34)
[2020-07-14] MEDS ORDERED: KETOROLAC 15 MG/ML 1 ML VIAL IM STA (21:34)
--- NOTE | 2020-07-14 22:13 | XR ---
EXAMINATION TYPE: XR wrist complete RT DATE OF EXAM: 07/14/2020 COMPARISON: NONE HISTORY: Pain. Trauma TECHNIQUE: 4 views FINDINGS: Carpal bones are intact. Metacarpals appear intact. I see no fracture nor dislocation. Scap hoid appears normal. IMPRESSION: Negative right wrist exam.
--- NOTE | 2020-07-14 22:19 | XR ---
EXAMINATION TYPE: XR hand complete RT DATE OF EXAM: 07/14/2020 COMPARISON: NONE HISTORY: Pain TECHNIQUE: 3 views FINDINGS: Metacarpals are intact. I see no fracture nor dislocation. Joint spaces are normal. There a re no pathologic calcifications. IMPRESSION: Negative right hand exam. No fracture seen.
--- NOTE | 2020-07-14 22:21 | ED ---
Upper Extremity HPI - General Chief Complaint: Extremity Injury, Upper Stated Complaint: R Hand Injury Time Seen by Provider: 07/14/20 21:17 Source: patient Mode of arrival: ambulatory Limitations: no limitations - History of Present Illness Initial Comments: 40-year-old female patient presents to the emergency department today for evaluation of injury to the right hand. Patient states that she was throwing a pillow towards her dog when her hand hit the dog cage. States she is sustaining an injury over the dorsal aspect. Patient states she is having severe pain to the hand especially with movement of the fingers. States she is having mild pain to the wrist. Denies numbness or tingling to the hand. States that she has had hand fracture in the site in the past. Denies any other injuries. Patient denies any headache, neck pain, back pain, chest pain, shortness of breath, dizziness, weakness, abdominal pain, nausea, vomiting, or difficulties with bowel movements or urination. - Related Data Home Medications Medication Instructions Recorded Confirmed Ibuprofen [Motrin Ib] 400 mg PO Q6H PRN 06/15/19 06/15/19 Isibloom 1 tab PO DAILY 06/15/19 06/15/19 Levothyroxine Sodium [Synthroid] 25 mcg PO DAILY 06/15/19 06/15/19 Previous Rx's Medication Instructions Recorded Ibuprofen [Motrin] 600 mg PO Q8HR PRN #30 tab 07/14/20 Allergies Allergy/AdvReac Type Severity Reaction Status Date / Time No Known Allergies Allergy Verified 07/14/20 21:11 Review of Systems ROS Statement: Those systems with pertinent positive or pertinent negative responses have been documented in the HPI. ROS Other: All systems not noted in ROS Statement are negative. Past Medical History Past Medical History: GERD/Reflux Additional Past Medical History / Comment(s): bronchitis; Raynaud's History of Any Multi-Drug Resistant Organisms: None Reported Additional Past Surgical History / Comment(s): explore lap 2019, D&C Past Anesthesia/Blood Transfusion Reactions: No Reported Reaction Additional Past Anesthesia/Blood Transfusion Reaction / Comment(s): no hx blood transfusion Past Psychological History: No Psychological Hx Reported Smoking Status: Current every day smoker Past Alcohol Use History: Occasional Past Drug Use History: None Reported - Past Family History Mother Family Medical History: No Reported History Father Family Medical History: Myocardial Infarction ([place]) General Exam Limitations: no limitations General appearance: alert, in no apparent distress, other (This is a well- developed, well-nourished adult female patient in no acute distress. Vital signs upon presentation are temperature 98.6F, pulse 81, respiration 16, blood pressure 123/90, pulse ox 98% on room air) Respiratory exam: Present: normal lung sounds bilaterally. Absent: respiratory distress, wheezes, rales, rhonchi, stridor Cardiovascular Exam: Present: regular rate, normal rhythm, normal heart sounds. Absent: systolic murmur, diastolic murmur, rubs, gallop, clicks Extremities exam: Present: full ROM, normal capillary refill, other (There is soft tissue swelling and ecchymosis noted over the dorsal aspect of the hand at the base of the middle finger. There is no anatomical snuffbox tenderness. Skin is otherwise pink, warm, and dry. Cap refills less than 3 seconds. Radial pulses 2+ and equal bilaterally.). Absent: tenderness, pedal edema, joint swelling, calf tenderness Neurological exam: Present: alert, oriented X3, CN II-XII intact Psychiatric exam: Present: normal affect, normal mood Skin exam: Present: warm, dry, intact, normal color. Absent: rash Course Vital Signs 07/14/20 21:07 Temperature 98.6 F Pulse Rate 81 Respiratory 16 Rate Blood Pressure 123/90 O2 Sat by Pulse 98 Oximetry Medical Decision Making - Medical Decision Making 40-year-old female patient presents to the emergency department today for evaluation of right hand injury. Physical examination did reveal soft tissue swelling and ecchymosis over the dorsal aspect of the right hand. Patient is also reporting wrist pain, she had no anatomical snuffbox tenderness. Neurovascular status is intact to the hand. X-rays of the right hand and wrist are obtained and showed no evidence for fracture. We did place Jamal wrap. She is instructed to rest, ice, elevate. She is given Tylenol with Codeine starter pack as well as ibuprofen prescription. She'll be discharged of up with her primary care physician for recheck in 1-2 days. She is instructed to have repeat x-rays performed in 7-10 days the pain symptoms persist. She verbalizes understanding and agrees with this plan. - Radiology Data Radiology results: report reviewed, image reviewed 3 views of the right hand are obtained. Report was reviewed in its entirety. Impression by Dr. Stevenson shows negative right hand exam. No fracture seen 4 views of the right wrist are obtained. Report was reviewed in its entirety. Impression by Dr. Stevenson shows negative right wrist exam. Disposition Clinical Impression: Contusion of right hand, Sprain of right hand Disposition: HOME SELF-CARE Condition: Good Instructions (If sedation given, give patient instructions): Contusion in Adults (ED), Hand Sprain (ED) Additional Instructions: Rest, ice, elevate the hand. Follow-up with the primary care physician for recheck in 1-2 days. have repeat x-rays performed in 7-10 days if pain symptoms persist Return to the emergency department immediately for any new, worsening, or concerning symptoms. Prescriptions: Ibuprofen [Motrin] 600 mg PO Q8HR PRN #30 tab PRN Reason: Pain Is patient prescribed a controlled substance at d/c from ED?: No Referrals: Blas Crabtree MD [Primary Care Provider] - 1-2 days
== END 2020-07-14 22:53 | disposition home or self-care (01) ==
LOC: EC 20:50
DX: S63.91XA Sprain of unspecified part of right wrist and hand, initial encounter (principal); F17.200 Nicotine dependence, unspecified, uncomplicated; Z79.890 Hormone replacement therapy; W22.8XXA Striking against or struck by other objects, initial encounter
CPT/HCPCS: 73110; 73130; 99283; 96372; J1885